=== PATIENT | male | born 1960 | race Caucasian/White ===

== ENCOUNTER 2019-03-16 07:39 | Inpatient (IN) | payer OTHER ==
[~2019-03-16] VITALS: Ht 188 cm; Wt 83.5 kg
[2019-03-16 08:28] LABS: BASOPHIL % 0.1 % (0-2)
[2019-03-16 08:37] LABS: PLATELET COUNT 97 x10^3mcL (130-400); RED CELL DISTRIBUTION WIDTH 14.8 % (11.5-14.5)
[2019-03-16 08:42] LABS: ALKALINE PHOSPHATASE 73 U/L (46-116); ALT/SGPT 64 U/L (16-63); AST/SGOT 114 U/L (15-37); BILIRUBIN TOTAL 0.6 mg/dL (0.20-1.00); CALCIUM 8.2 mg/dL (8.5-10.1); CARBON DIOXIDE 31.5 mmol/L (21-32); CHLORIDE SERUM 73 mmol/L (98-107); CREATININE SERUM 1.1 mg/dL (0.7-1.3); GFR1 > 60 mL/min; GLUCOSE SERUM 167 mg/dL (74-106); POTASSIUM SERUM 3.9 mmol/L (3.5-5.1)
[2019-03-16 08:53] LABS: LIPASE 90 IU/L (73-393)
[2019-03-16 09:09] LABS: ALBUMIN 2.4 g/dL (3.4-5.0); SODIUM SERUM 111 mmol/L (136-145); TOTAL PROTEIN, SERUM 5.8 g/dL (6.4-8.2)
[2019-03-16 13:46] LABS: CALCIUM 7.9 mg/dL (8.5-10.1); CARBON DIOXIDE 34.9 mmol/L (21-32); CHLORIDE SERUM 78 mmol/L (98-107); CREATININE SERUM 0.9 mg/dL (0.7-1.3); GFR1 > 60 mL/min; GLUCOSE SERUM 77 mg/dL (74-106); POTASSIUM SERUM 3.8 mmol/L (3.5-5.1)
[2019-03-16 13:59] LABS: SODIUM SERUM 112 mmol/L (136-145)
[2019-03-16 14:14] VITALS: BP 101/65
[2019-03-16 16:05] VITALS: BP 106/69
[2019-03-16 19:19] VITALS: BP 96/64
[2019-03-17 00:34] LABS: CALCIUM 7.8 mg/dL (8.5-10.1); CARBON DIOXIDE 35.3 mmol/L (21-32); CHLORIDE SERUM 83 mmol/L (98-107); CREATININE SERUM 0.7 mg/dL (0.7-1.3); GFR1 > 60 mL/min; GLUCOSE SERUM 77 mg/dL (74-106); POTASSIUM SERUM 4.1 mmol/L (3.5-5.1)
[2019-03-17 00:38] LABS: SODIUM SERUM 116 mmol/L (136-145)
[2019-03-17 04:21] VITALS: BP 109/67
[2019-03-17 07:03] LABS: BASOPHIL % 0.2 % (0-2)
[2019-03-17 07:20] LABS: ALKALINE PHOSPHATASE 73 U/L (46-116); ALT/SGPT 67 U/L (16-63); AST/SGOT 163 U/L (15-37); BILIRUBIN TOTAL 0.45 mg/dL (0.20-1.00); CARBON DIOXIDE 32.9 mmol/L (21-32); CHLORIDE SERUM 88 mmol/L (98-107); CREATININE SERUM 0.6 mg/dL (0.7-1.3); GFR1 > 60 mL/min; GLUCOSE SERUM 85 mg/dL (74-106); MAGNESIUM 1.8 mg/dL (1.8-2.4); SODIUM SERUM 125 mmol/L (136-145)
[2019-03-17 07:24] LABS: ALBUMIN 2.1 g/dL (3.4-5.0); TOTAL PROTEIN, SERUM 5.5 g/dL (6.4-8.2)
[2019-03-17 07:39] LABS: PLATELET COUNT 121 x10^3mcL (130-400); RED CELL DISTRIBUTION WIDTH 14.9 % (11.5-14.5)
[2019-03-17 08:07] VITALS: BP 104/63
[2019-03-17 12:04] VITALS: BP 100/58
[2019-03-17 16:25] VITALS: BP 115/80
[2019-03-17 17:50] LABS: CALCIUM 8.7 mg/dL (8.5-10.1); CARBON DIOXIDE 35.6 mmol/L (21-32); CHLORIDE SERUM 87 mmol/L (98-107); CREATININE SERUM 0.6 mg/dL (0.7-1.3); GFR1 > 60 mL/min; GLUCOSE SERUM 89 mg/dL (74-106); POTASSIUM SERUM 3.9 mmol/L (3.5-5.1)
[2019-03-17 17:56] LABS: SODIUM SERUM 123 mmol/L (136-145)
[2019-03-17 19:25] VITALS: BP 98/63
[2019-03-18 01:48] VITALS: BP 146/99
[2019-03-18 04:51] VITALS: BP 102/63
[2019-03-18 07:15] LABS: BASOPHIL % 0 % (0-2); PLATELET COUNT 98 x10^3mcL (130-400)
[2019-03-18 07:19] LABS: ALKALINE PHOSPHATASE 60 U/L (46-116); ALT/SGPT 67 U/L (16-63); AST/SGOT 109 U/L (15-37); BILIRUBIN TOTAL 0.4 mg/dL (0.20-1.00); CALCIUM 8.1 mg/dL (8.5-10.1); CARBON DIOXIDE 37.3 mmol/L (21-32); CHLORIDE SERUM 83 mmol/L (98-107); CREATININE SERUM 0.5 mg/dL (0.7-1.3); GFR1 > 60 mL/min; GLUCOSE SERUM 92 mg/dL (74-106); POTASSIUM SERUM 3.7 mmol/L (3.5-5.1)
[2019-03-18 07:21] LABS: ALBUMIN 1.9 g/dL (3.4-5.0); SODIUM SERUM 119 mmol/L (136-145); TOTAL PROTEIN, SERUM 5.3 g/dL (6.4-8.2)
[2019-03-18 08:53] VITALS: BP 117/72
[2019-03-18 10:59] LABS: CALCIUM 8.5 mg/dL (8.5-10.1); CARBON DIOXIDE 39.3 mmol/L (21-32); CHLORIDE SERUM 88 mmol/L (98-107); CREATININE SERUM 0.5 mg/dL (0.7-1.3); GFR1 > 60 mL/min; GLUCOSE SERUM 102 mg/dL (74-106); SODIUM SERUM 126 mmol/L (136-145)
[2019-03-18 12:14] VITALS: BP 111/70
[2019-03-18 16:44] VITALS: BP 120/80
[2019-03-18 21:09] VITALS: BP 130/81
[2019-03-19] VITALS (13 sets, daily range): BP systolic 71–115; BP diastolic 46–77
[2019-03-19 06:57] LABS: ALKALINE PHOSPHATASE 63 U/L (46-116); ALT/SGPT 70 U/L (16-63); AST/SGOT 89 U/L (15-37); BILIRUBIN DIRECT 0.27 mg/dL (0.0-0.2); BILIRUBIN TOTAL 0.5 mg/dL (0.20-1.00); CALCIUM 9.4 mg/dL (8.5-10.1); CARBON DIOXIDE 38.4 mmol/L (21-32); CHLORIDE SERUM 90 mmol/L (98-107); CREATININE SERUM 0.6 mg/dL (0.7-1.3); GFR1 > 60 mL/min; GLUCOSE SERUM 99 mg/dL (74-106); POTASSIUM SERUM 4.5 mmol/L (3.5-5.1); SODIUM SERUM 130 mmol/L (136-145)
[2019-03-19 07:03] LABS: ALBUMIN 2.1 g/dL (3.4-5.0); TOTAL PROTEIN, SERUM 5.8 g/dL (6.4-8.2)
[2019-03-19 07:08] LABS: BASOPHIL % 0 % (0-2); PLATELET COUNT 94 x10^3mcL (130-400); RED CELL DISTRIBUTION WIDTH 14.7 % (11.5-14.5)
[2019-03-19 10:58] LABS: AMPHETAMINE QUAL UR NONE DETECTED (See below)
[2019-03-20] VITALS (15 sets, daily range): BP systolic 86–140; BP diastolic 56–89
[2019-03-20 05:11] LABS: BASOPHIL % 0.1 % (0-2); RED CELL DISTRIBUTION WIDTH 14.4 % (11.5-14.5)
[2019-03-20 05:16] LABS: PLATELET COUNT 123 x10^3mcL (130-400)
[2019-03-20 05:22] LABS: CALCIUM 8.9 mg/dL (8.5-10.1); CARBON DIOXIDE 33.4 mmol/L (21-32); CHLORIDE SERUM 94 mmol/L (98-107); CREATININE SERUM 0.7 mg/dL (0.7-1.3); GFR1 > 60 mL/min; GLUCOSE SERUM 188 mg/dL (74-106); POTASSIUM SERUM 4.2 mmol/L (3.5-5.1); SODIUM SERUM 130 mmol/L (136-145)
[2019-03-21] VITALS (18 sets, daily range): BP systolic 110–149; BP diastolic 69–90
[2019-03-21 05:20] LABS: BASOPHIL % 0 % (0-2); PLATELET COUNT 128 x10^3mcL (130-400); RED CELL DISTRIBUTION WIDTH 15.5 % (11.5-14.5)
[2019-03-21 05:36] LABS: CHLORIDE SERUM 100 mmol/L (98-107); POTASSIUM SERUM 4.1 mmol/L (3.5-5.1); SODIUM SERUM 134 mmol/L (136-145)
[2019-03-21 05:37] LABS: ALBUMIN 1.5 g/dL (3.4-5.0); AST/SGOT 107 U/L (15-37); BILIRUBIN DIRECT 0.17 mg/dL (0.0-0.2); BILIRUBIN TOTAL 0.3 mg/dL (0.20-1.00); CARBON DIOXIDE 37 mmol/L (21-32); CREATININE SERUM 0.5 mg/dL (0.7-1.3); GFR1 > 60 mL/min; GLUCOSE SERUM 158 mg/dL (74-106); TOTAL PROTEIN, SERUM 4.5 g/dL (6.4-8.2)
[2019-03-21 05:38] LABS: ALKALINE PHOSPHATASE 54 U/L (46-116); ALT/SGPT 83 U/L (16-63)
[2019-03-22] VITALS (14 sets, daily range): BP systolic 125–144; BP diastolic 76–88
[2019-03-22 06:08] LABS: CARBON DIOXIDE 38.7 mmol/L (21-32); CHLORIDE SERUM 101 mmol/L (98-107); CREATININE SERUM 0.5 mg/dL (0.7-1.3); GFR1 > 60 mL/min; GLUCOSE SERUM 149 mg/dL (74-106); POTASSIUM SERUM 4.2 mmol/L (3.5-5.1); SODIUM SERUM 136 mmol/L (136-145)
[2019-03-22 06:12] LABS: PLATELET COUNT 152 x10^3mcL (130-400)
[2019-03-22 06:13] LABS: BASOPHIL % 0 % (0-2); RED CELL DISTRIBUTION WIDTH 14.6 % (11.5-14.5)
[2019-03-23 03:44] VITALS: BP 135/80
[2019-03-23 06:15] LABS: BASOPHIL % 0.3 % (0-2); PLATELET COUNT 167 x10^3mcL (130-400)
[2019-03-23 06:59] LABS: CARBON DIOXIDE 38.7 mmol/L (21-32); CHLORIDE SERUM 102 mmol/L (98-107); CREATININE SERUM 0.5 mg/dL (0.7-1.3); GFR1 > 60 mL/min; GLUCOSE SERUM 97 mg/dL (74-106); POTASSIUM SERUM 4.5 mmol/L (3.5-5.1); SODIUM SERUM 138 mmol/L (136-145); TOTAL PROTEIN, SERUM 5.3 g/dL (6.4-8.2)
[2019-03-23 07:00] LABS: ALBUMIN 1.7 g/dL (3.4-5.0); ALKALINE PHOSPHATASE 61 U/L (46-116); ALT/SGPT 121 U/L (16-63); AST/SGOT 103 U/L (15-37); BILIRUBIN DIRECT 0.13 mg/dL (0.0-0.2); BILIRUBIN TOTAL 0.3 mg/dL (0.20-1.00); CALCIUM 9.4 mg/dL (8.5-10.1)
[2019-03-23 07:24] LABS: RED CELL DISTRIBUTION WIDTH 15.2 % (11.5-14.5)
[2019-03-23 08:00] VITALS: BP 130/79
[2019-03-23 12:00] VITALS: BP 148/92
[2019-03-23 14:00] VITALS: BP 150/95
[2019-03-23 17:20] VITALS: BP 140/81
[2019-03-23 20:20] VITALS: BP 145/93
[2019-03-24 04:21] VITALS: BP 141/94
[2019-03-24 08:14] VITALS: BP 158/105
[2019-03-24 09:26] VITALS: BP 158/105
[2019-03-24 11:18] VITALS: Ht 188 cm; Wt 83.5 kg
[2019-03-24 12:01] LABS: BASOPHIL % 0.1 % (0-2); PLATELET COUNT 205 x10^3mcL (130-400)
[2019-03-24 12:02] LABS: RED CELL DISTRIBUTION WIDTH 15.4 % (11.5-14.5)
[2019-03-24 12:23] LABS: POTASSIUM SERUM 3.6 mmol/L (3.5-5.1); SODIUM SERUM 143 mmol/L (136-145)
[2019-03-24 12:24] LABS: CHLORIDE SERUM 101 mmol/L (98-107)
[2019-03-24 12:25] LABS: CALCIUM 9.6 mg/dL (8.5-10.1); CREATININE SERUM 0.5 mg/dL (0.7-1.3); GFR1 > 60 mL/min; GLUCOSE SERUM 71 mg/dL (74-106)
[2019-03-24 17:03] VITALS: BP 154/92
[2019-03-24 21:23] VITALS: BP 150/81
[2019-03-25 05:32] VITALS: BP 154/96
[2019-03-25 07:12] LABS: CHLORIDE SERUM 103 mmol/L (98-107); POTASSIUM SERUM 3.6 mmol/L (3.5-5.1); SODIUM SERUM 143 mmol/L (136-145)
[2019-03-25 07:13] LABS: GLUCOSE SERUM 147 mg/dL (74-106)
[2019-03-25 07:14] LABS: CALCIUM 8.7 mg/dL (8.5-10.1); CREATININE SERUM 0.5 mg/dL (0.7-1.3); GFR1 > 60 mL/min
[2019-03-25 07:16] LABS: CARBON DIOXIDE 39.2 mmol/L (21-32)
[2019-03-25 09:35] VITALS: BP 134/88
[2019-03-25 11:59] VITALS: BP 134/84
[2019-03-25 17:13] VITALS: BP 133/83
[2019-03-25] MEDS ORDERED: BAY PO (18:35)
[2019-03-25] MEDS ORDERED: THI100 PO (18:35)
[2019-03-25] MEDS ORDERED: ATORVASTATIN CA40 M1 PO (18:35)
[2019-03-25] MEDS ORDERED: PRE20 PO (18:35)
[2019-03-25] MEDS ORDERED: FOL1 PO (18:35)
[2019-03-25] MEDS ORDERED: LOP50 PO (18:35)
[2019-03-25 21:10] VITALS: BP 133/78
[2019-03-26 05:25] VITALS: BP 171/100
[2019-03-26 07:56] VITALS: BP 146/113
[2019-03-26 11:39] VITALS: BP 150/89
[2019-03-26 15:45] VITALS: BP 150/89
[2019-03-26 16:22] VITALS: BP 151/91
== END 2019-03-26 19:15 | disposition left against medical advice (07) | DRG 190 ==
LOC: ED 07:39 → DU 09:57 → IC 09:57 → DU 12:19 → IC 03-19 07:39 → DU 03-23 13:42
PROVIDERS: Emergency Medicine; Internal Medicine; Internal Medicine Nephrology; Internal Medicine Pulmonary Disease; ADMIT Internal Medicine Pulmonary Disease
PROC: 0BH17EZ Insertion of Endotracheal Airway into Trachea, Via Natural or Artificial Opening (ICD-10-PCS; principal; 2019-03-19)
PROC: 5A1945Z Respiratory Ventilation, 24-96 Consecutive Hours (ICD-10-PCS; 2019-03-19)
DX: I21.4 Non-ST elevation (NSTEMI) myocardial infarction (principal); J96.01 Acute respiratory failure with hypoxia; J96.02 Acute respiratory failure with hypercapnia; D69.59 Other secondary thrombocytopenia; E87.1 Hypo-osmolality and hyponatremia; F17.210 Nicotine dependence, cigarettes, uncomplicated; I10 Essential (primary) hypertension; F10.10 Alcohol abuse, uncomplicated; Z53.21 Procedure and treatment not carried out due to patient leaving prior to being seen by health care provider; Y90.0 Blood alcohol level of less than 20 mg/100 ml; Z68.1 Body mass index [BMI] 19.9 or less, adult; Z79.899 Other long term (current) drug therapy
CPT/HCPCS: 36600; 83880; 97116-GP; 97530-GP; A4628; G0378; G0480; J1644; J1650; J2704; J2920; J2930; J3490; J7030; J7042; J7060; Q0092